=== PATIENT | female | born 1965 | race Caucasian/White ===

== ENCOUNTER → 2017-07-23 | Outpatient (CLI) | payer BC ==
--- NOTE | 2017-07-25 11:20 | MM ---
Reason for exam: screening (asymptomatic). Last mammogram was performed 1 year and 6 months ago. History: Patient had first child at age 43. Family history of breast cancer in maternal aunt at age 56. Physical Findings: A clinical breast exam by your physician is recommended on an annual basis and results should be correlated with mammographic findings. MG Screening Mammo w CAD Bilateral CC and MLO view(s) were taken. Prior study comparison: January 25, 2016, bilateral MG screening mammo w CAD. January 19, 2015, bilateral MG screening mammo w CAD. There are scattered fibroglandular densities. There is chronic nodularity bilaterally. No significant changes when compared with prior studies. ASSESSMENT: Negative, BI-RAD 1 RECOMMENDATION: Routine screening mammogram of both breasts in 1 year.
== END | disposition home or self-care (01) ==
LOC: RADMAMWWP 10:27
PROVIDERS: ATTEND Family Medicine
DX: Z12.31 Encounter for screening mammogram for malignant neoplasm of breast (principal)
CPT/HCPCS: 77067

== ENCOUNTER → 2019-03-23 | Outpatient (CLI) | payer BC ==
--- NOTE | 2019-03-23 15:35 | BD ---
EXAMINATION TYPE: Axial Bone Density DATE OF EXAM: 03/23/2019 COMPARISON: NONE CLINICAL HISTORY: N 95.1 Height: 62 Weight: 157 FRAX RISK QUESTIONS: Alcohol (3 or more units per day): no Family History (Parent hip fracture): no Glucocorticoids (More than 3mos): no (Ex: prednisone, prednisolone, methylprednisolone, dexamethasone, and hydrocortisone). History of Fracture in Adulthood: yes Secondary Osteoporosis: 1. Type 1 Diabetes: no 2. Hyperthyroidism: no 3. Menopause before 45: no 4. Malnutrition: no 5. Chronic liver disease: no Rheumatoid Arthritis: no Current Tobacco Use: no RISK FACTORS HISTORY OF: Family History of Osteoporosis: not to knowledge of patient Active: yes Diet low in dairy products/other sources of calcium: at least one serving a day or more Postmenopausal woman: yes Take estrogen and/or progesterone medications: no Lost more than 2 inches in height since high school: no Frequent falls: no Poor Health: no Hyperparathyroidism: no Adrenal Insufficiency: no MEDICATIONS: Prednisone or other steroids: no Thyroid Medications: yes Which medication: Levothyroxine How Long: about 5 years Osteoporosis Medications: no Additional Medications: vitamin B12, Vitamin D, multivitamin Additional History: hx fractured clavicle EXAM MEASUREMENTS: Bone mineral densitometry was performed using the [employer] System. Bone mineral density as measured about the Lumbar spine is: ----- L1-L4(G/cm2): 1.291 T Score Values are as follows: ----- L2: 0.4 ----- L3: 0.9 ----- L4: 1.3 ----- L1-L4: 0.9 Bone mineral density BASELINE Bone mineral density about the R hip (g/cm2): 1.006 Bone mineral density about the L hip (g/cm2): 0.998 T Score values are as follows: -----R Neck: -0.2 -----L Neck: -0.3 -----R Total: 0.5 -----L Total: 0.4 Bone mineral density BASELINE IMPRESSION: Normal (Values between +1 and -1 indicate normal bone mass). Consider repeating this study in 5 year s or sooner if there is some new clinical indication. NOTE: T-SCORE=SD OF THE YOUNG ADULT MEAN.
--- NOTE | 2019-03-26 10:56 | MM ---
Reason for exam: screening (asymptomatic). Last mammogram was performed 1 year and 8 months ago. History: Patient had first child at age 43. Family history of breast cancer in maternal aunt at age 56. Physical Findings: A clinical breast exam by your physician is recommended on an annual basis and results should be correlated with mammographic findings. MG Screening Mammo w CAD Bilateral CC and MLO view(s) were taken. Prior study comparison: July 23, 2017, bilateral MG screening mammo w CAD. January 25, 2016, bilateral MG screening mammo w CAD. There are scattered fibroglandular densities. There is chronic nodularity bilaterally. There is no discrete abnormality. ASSESSMENT: Benign, BI-RAD 2 RECOMMENDATION: Routine screening mammogram of both breasts in 1 year.
== END | disposition home or self-care (01) ==
LOC: RADBDWWP 12:33
PROVIDERS: ATTEND Family Medicine
DX: Z12.31 Encounter for screening mammogram for malignant neoplasm of breast (principal); M89.9 Disorder of bone, unspecified; N95.1 Menopausal and female climacteric states; Z80.3 Family history of malignant neoplasm of breast
CPT/HCPCS: 77067; 77080

== ENCOUNTER → 2020-06-17 | Outpatient (CLI) | payer BC | END | disposition home or self-care (01) | LOC: RADMAMWWP 15:59 | PROVIDERS: ATTEND Family Medicine | DX: Z12.31 Encounter for screening mammogram for malignant neoplasm of breast (principal); Z80.3 Family history of malignant neoplasm of breast | CPT/HCPCS: 77067 ==

== ENCOUNTER → 2023-04-26 | Outpatient (CLI) | payer BC ==
--- NOTE | 2023-04-29 07:45 | BD ---
EXAMINATION TYPE: Axial Bone Density DATE OF EXAM: 04/26/2023 CLINICAL HISTORY: 58 years old Female. ICD-10 CODE: M85.9 DISORDER OF BONE DENS,UNSPECIFIED Height: 62 Weight: 157 FRAX RISK QUESTIONS: Family History (Parent hip fracture): no History of Fracture in Adulthood: yes Secondary Osteoporosis: no RISK FACTORS HISTORY OF: Surgery to Hip(right): yes When: 2020 MEDICATIONS: Thyroid Medications: yes Which medication: Levothyroxine How Lon+ years EXAM MEASUREMENTS: Bone mineral densitometry was performed using the [employer] System. Bone mineral density as measured about the Lumbar spine is: ----- L1-L4(G/cm2): 1.180 T Score Values are as follows: ----- L1: -0.1 ----- L2: -0.3 ----- L3: -0.2 ----- L4: 0.3 ----- L1-L4: 0.0 Z Score Values are as follows: ----- L1: 0.7 ----- L2: 0.4 ----- L3: 0.6 ----- L4: 1.1 ----- L1-L4: 0.8 Bone mineral density has: Decreased -8.6% since study of: 03/23/2019 Bone mineral density about the L hip (g/cm2): 1.007 T Score values are as follows: -----L Neck: -0.9 -----L Total: 0.0 Z Score values are as follows: -----L Neck: 0.1 -----L Total: 0.6 Bone mineral density has: Decreased -4.3% since study of: 03/23/2019 FRAX%s: The graph provided illustrates a 10.7% chance for a major osteoporotic fx and a 0.5% chance f or the hips probability for fx in 10 years time. IMPRESSION: Normal (Values between +1 and -1 indicate normal bone mass). Consider repeating this study in 5 year s or sooner if there is some new clinical indication. NOTE: T-SCORE=SD OF THE YOUNG ADULT MEAN.
--- NOTE | 2023-04-29 15:15 | MM ---
Reason for Exam: Screening (asymptomatic). Last mammogram was performed 2 year(s) and 11 month(s) ago. Patient History: Menarche at age 13. First Full-Term at age 43. Late child-bearing (after 30). Postmenopausal. Patient used Hormonal Contraceptives for 2 years. Maternal aunt had breast cancer, age 56. Risk Values: Roya 5 year model risk: 1.8%. NCI Lifetime model risk: 10.7%. Prior Study Comparison: 07/23/2017 Bilateral Screening Mammogram, [facility]. 03/23/2019 Bilateral Screening Mammogram, [facility]. 06/17/2020 Bilateral Screening Mammogram, [facility]. Tissue Density: The breast tissue is almost entirely fat. Findings: Analyzed By CAD. There is no suspicious group of microcalcifications or new suspicious mass. Overall Assessment: Negative, BI-RAD 1 Management: Screening Mammogram of both breasts in [address] [facility] will attempt to contact patient to return for supplemental views and ultrasound if indicated. Patient should continue monthly self-breast exams. A clinical breast exam by your physician is recommended on an annual basis. This exam should not preclude additional follow-up of suspicious palpable abnormalities. Note on Roya scores and lifetime risk: 1. A Roya score greater than 3% is considered moderate risk. If this is the case, consider specialist referral to assess eligibility for a risk reducing agent. 2. If overall lifetime risk for the development of breast cancer is 20% or higher, the patient may qualify for future screening with alternating mammogram and breast MRI. Electronically signed and approved by: Watson Rodrigez DO
== END | disposition home or self-care (01) ==
LOC: RADBDWWP 14:46
PROVIDERS: ATTEND Family Medicine
DX: Z12.31 Encounter for screening mammogram for malignant neoplasm of breast (principal); M35.9 Systemic involvement of connective tissue, unspecified; M85.89 Other specified disorders of bone density and structure, multiple sites; Z78.0 Asymptomatic menopausal state; Z80.3 Family history of malignant neoplasm of breast
CPT/HCPCS: 77063; 77067; 77080